=== PATIENT | female | born 1955 | race Caucasian/White ===

== ENCOUNTER 2016-11-25 14:43 | Emergency (ER) | payer MEDICARE, BC ==
[2016-11-25 14:53] VITALS: BP 174/82
--- NOTE | 2016-11-25 15:09 | ED Physician Documentation ---
History of Present Illness - Stated complaint Stated Complaint: LT LEG SWELLING - Chief complaint Chief Complaint: Ext Problem - History obtained from History obtained from: Patient, Family - History of Present Illness Timing: How many weeks ago (3) Pain level max: 5 Pain level now: 5 Improved by: rest, compression socks Worsened by: walking, movement - Additonal information Additional information: Patient is visiting from [place] on her way to [place]. Has developed LLE pain and swelling. 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 - Present Medications Home Medications: Ambulatory Orders Medication Instructions Recorded Confirmed Ibuprofen [Motrin] 600 mg PO Q6H PRN #30 tab 11/25/16 - Allergies Allergies/Adverse Reactions: Allergies Allergy/AdvReac Type Severity Reaction Status Date / Time No Known Drug Allergies Allergy Verified 11/25/16 14:53 - Social History Does the pt smoke?: No Smoking Status: Never smoker Does the pt drink ETOH?: Yes ETOH Use: Wine Does the pt have substance abuse?: No - Immunizations Immunizations are current?: Yes - POLST Patient has POLST: No PD ED PE NORMAL - Vitals Vital signs reviewed: Yes - General General: Alert and oriented X 3, No acute distress - HEENT HEENT: Moist mucous membranes - Neck Neck: Supple, no meningeal sign - Cardiac Cardiac: RRR - Respiratory Respiratory: No respiratory distress, Clear bilaterally - Derm Derm: Warm and dry - Extremities Extremities: Other (LLE swelling and tenderness to the medial calf, no redness.) - Neuro Neuro: Alert and oriented X 3 Results - Vitals Vitals: Vital Signs - 24 hr 11/25/16 14:49 Temperature 36.1 C L Heart Rate 75 Respiratory 18 Rate Blood Pressure 174/82 H O2 Saturation 100 Oxygen O2 Source Room air - Rads (name of study) LLE duplex US Radiology: Prelim report reviewed, EMP read contemporaneously, See rad report ( No evidence of a deep venous thrombosis.2. Enlarged, partially occluded superficial venous structure draining into the popliteal vein is seen in the mid calf region. Potentially, this could represent an enlarged lesser saphenous vein. ) PD MEDICAL DECISION MAKING - ED course Complexity details: reviewed results, re-evaluated patient, considered differential, d/w patient ED course: Patient presents to the emergency department with calf pain and swelling to the left lower extremity. No DVT on ultrasound, however there does appear to be a superficial thrombophlebitis. Will place on nonsteroidal anti-inflammatory medications as well as warm compresses for home. She is ambulating well in the emergency department and does not require any assistive devices. Recommend that if she is still having symptoms in 1-2 weeks that she have a repeat ultrasound to evaluate for potential extension of the clot. Denies any chest pain or dyspnea. Patient and family counseled regarding signs and symptoms for which I believe and urgent re-evaluation would be necessary. Patient with good understanding of and agreement to plan and is comfortable going home at this time This document was made in part using voice recognition software. While efforts are made to proofread this document, sound alike and grammatical errors may occur. Departure - Departure Disposition: 01 Home, Self Care Clinical Impression: Superficial thrombophlebitis Qualifiers: Superficial thrombophlebitis-Involved body area: lower extremity Laterality: left Qualified Code(s): I80.02 - Phlebitis and thrombophlebitis of superficial vessels of left lower extremity Condition: Good Instructions: ED Phlebitis Superficial Follow-Up: your,doctor in 1 week [Other] Prescriptions: Ibuprofen [Motrin] 600 mg PO Q6H PRN #30 tab PRN Reason: Pain Comments: You should have a repeat US in 1-2 weeks to determine if the clot is extending into your deep veins. Return if you worsen. Discharge Date/Time: 11/25/16 18:11
--- NOTE | 2016-11-25 17:41 | Ultrasound Preliminary Report ---
Exam: US Duplex Ext Veins Left IMPRESSION: 1. No evidence of a deep venous thrombosis. 2. Enlarged, partially occluded superficial venous structure draining into the popliteal vein is seen in the mid calf region. Potentially, this could represent the lesser saphenous vein. [facility] SITE ID: [id number]
--- NOTE | 2016-11-25 17:54 | Ultrasound Report ---
EXAM: LEFT LOWER EXTREMITY VENOUS ULTRASOUND EXAM DATE: 11/25/2016 05:02 PM. CLINICAL HISTORY: Left calf pain, swelling, recent long car trip. COMPARISON: None. TECHNIQUE: Real-time sonographic vascular imaging was performed by the improvement intern through the lower extremity utilizing both color-flow and Doppler spectral analysis. Multiple sales representative health insurance static amy ges were saved for review. FINDINGS: Common Femoral Vein (CFV): Normal. CFV-GSV Junction: Normal. Profunda Femoral Vein (PFV): Normal. Femoral Vein (FV) Prox: Normal. Femoral Vein (FV) Mid: Normal. Femoral Vein (FV) Dist: Normal. Popliteal Vein: Normal. Posterior Tibial Veins: Not well seen. Peroneal Veins: Not well seen. Contralateral Side CFV: Normal. Other: There is a large superficial vessel demonstrating nonocclusive thrombus which appears to drain into the popliteal vein. Potentially, this could represent the lesser saphenous vein. IMPRESSION: 1. No evidence of a deep venous thrombosis. 2. Enlarged, partially occluded superficial venous structure draining into the popliteal vein is seen in the mid calf region. Potentially, this could represent an enlarged lesser saphenous vein. [facility] Referring Provider Line: [phone] SITE ID: [id number]
== END 2016-11-25 18:11 | disposition home or self-care (01) ==
LOC: ED 14:43
DX: I80.02 Phlebitis and thrombophlebitis of superficial vessels of left lower extremity (principal); I10 Essential (primary) hypertension
CPT/HCPCS: 99283